=== PATIENT | female | born 1960 | race Caucasian/White ===

== ENCOUNTER 2019-11-02 06:29 | Inpatient (IN) ==
[2019-11-02] MEDS ORDERED: ACETAMINOPHEN 325 MG TABLET PO ONE (06:52)
[2019-11-02] MEDS ORDERED: IBUPROFEN 600 MG TABLET PO ONE (06:52)
[2019-11-02] MEDS ORDERED: 0.9 % SODIUM CHLORIDE 1,000 ML IV ONE ×2 (06:54→07:27)
[2019-11-02] MEDS ORDERED: cefTRIAXone 2 GM in DEXTROSE 5% IN WATER 50 ML IV ONE (07:12)
--- NOTE | 2019-11-02 07:41 | Emergency Department Note ---
Female Urogenital HPI - General Chief complaint: Urogenital-Female Stated complaint: body aches chills Time Seen by Provider: 11/02/19 07:26 Source: patient, family Mode of arrival: ambulatory Limitations: no limitations - History of Present Illness HPI Narrative: This pleasant 59-year-old is accompanied by her Bandar and presents with onset of chills that made her feel cold around 11 PM last night. She gives a background history of being scheduled for low back surgery related to degenerative disc disease and so sometimes it is difficult to tell what is due to her musculoskeletal condition and what could be due to her kidney/urinary tract. She has a previous history of a pyelonephritis and stayed in this hospital several days and it "came out of nowhere" and was not associated with any dysuria. She reports that she was thinking yesterday to have this be checked out today but onset came on strong around 11 PM as above. Again she denies dysuria. She has not checked her temperature with a thermometer but she knows that she was feverish last night. No sweatiness. REVIEW OF SYSTEMS: No sore throat, runny nose, nasal congestion, chest pain, shortness of breath. Has had some nausea and vomiting with 3 episodes yesterday including some dry heaves. No diarrhea or constipation. Has some generalized weakness and lightheadedness. - Related Data Allergies Allergy/AdvReac Type Severity Reaction Status Date / Time hydrocodone AdvReac Intermediate Headache Verified 11/02/19 06:32 Past Medical History - Past Medical History Medical history: Denies: asthma, DVT, pulmonary embolus, seizures Psychiatric history: Denies: anxiety, depression - Social History smoking status: Never smoker Alcohol use: Reports: None Drug use: Reports: none. Denies: marijuana Physical Exam Limitations: no limitations General appearance: alert, in no apparent distress, malaise (Moderate to severe) Head: atraumatic, normocephalic Eye: Present: EOMI ENT: Present: normal oropharynx, mucous membranes moist (But only very slightly.) Neck: Present: trachea midline. Absent: lymphadenopathy, thyromegaly Chest: Present: symmetric chest wall rise Respiratory: Present: normal lung sounds bilaterally. Absent: respiratory distress, wheezes, stridor, accessory muscle use, prolonged expiratory phase Cardiovascular: Present: regular rate, tachycardia. Absent: systolic murmur, diastolic murmur Abdominal: Present: soft. Absent: distention, tenderness, guarding, rebound, rigidity, organomegaly, mass Extremities: Absent: pedal edema, pretibial edema, calf tenderness Back: Present: CVA tenderness (R) (Moderate). Absent: tenderness, CVA tenderness (L), spinous process tenderness Neurological: Present: alert, oriented X3 Psychiatric: Present: normal affect, normal mood Skin: Present: warm, dry Course Vital Signs Temperature 100.4 F H 11/02/19 06:29 Pulse Rate 111 H 11/02/19 06:29 Respiratory Rate 30 H 11/02/19 06:29 Blood Pressure 161/88 11/02/19 06:29 Pulse Oximetry (%) 95 11/02/19 06:29 Temperature 99.2 F H 11/02/19 09:44 Pulse Rate 97 H 11/02/19 09:47 Respiratory Rate 23 H 11/02/19 09:47 Blood Pressure 99/59 11/02/19 09:47 Pulse Oximetry (%) 93 11/02/19 09:47 Urogenital-Female - MDM Narrative Medical decision making narrative: 7:19 AM -with possible urinary symptoms or history of Pyelonephritis that was occult until it was severe. Will do sepsis work-up with labs, cultures, antibiotics. She is tachycardic with fever. - Lab Data Result diagrams: 11/02/19 06:51 11/02/19 06:51 Lab Results 11/02/19 11/02/19 11/02/19 Range/Units 06:50 06:51 06:51 WBC 12.1 H (4.50-11.00) K/mcL RBC 4.06 (3.59-5.38) M/mcL Hgb 13.3 (11.2-15.7) g/dL Hct 39.1 (34.1-44.9) % MCV 96.3 (80.0-100.0) fL MCH 32.8 (26.0-34.0) pg MCHC 34.0 (31.0-36.0) g/dL RDW 12.0 (11.5-14.5) % Plt Count 251 (140-440) K/mcL MPV 9.8 (7.4-10.4) fL Total Counted 100 Seg Neutrophils % 79 H (38-78) % Band Neutrophils % 10 (0-10) % Lymphocytes % 9 L (15-49) % Monocytes % (Manual) 2 (1-12) % Platelet Estimate Normal (NORMAL) RBC Morphology Normal (NORMAL) VBG Lactic Acid (0.5-2.0) mmol/L Sodium 143 (133-145) mmol/L Potassium 3.5 (3.3-5.1) mmol/L Chloride 105 (96-108) mmol/L Carbon Dioxide 22 (22-30) mmol/L Anion Gap 16.0 (8-16) BUN 15 (6-20) mg/dl Creatinine 0.8 (0.6-1.1) mg/dl GFR Calculation 82 Glucose 102 (70-105) mg/dL Calcium 9.4 (8.6-10.4) mg/dl Total Bilirubin 0.4 (0.0-1.0) mg/dL AST 19 (0-37) U/l ALT 14 (0-40) U/l Alkaline Phosphatase 90 (39-117) U/L Total Protein 7.2 (5.9-8.4) gm/dL Albumin 4.2 (3.2-5.2) gm/dL Globulin 3.0 (2.2-3.7) gm/dL Albumin/Globulin Ratio 1.4 (1.0-2.3) Urine Color Straw Urine Appearance Clear Urine pH 5.0 (5.0-9.0) Ur Specific [place] 1.011 (1.000-1.035) Urine Protein Neg (NEG) mg/dL Urine Glucose (UA) Negative (NEG) mg/dL Urine Ketones Neg (NEG) mg/dL Urine Occult Blood 0.03 A (<0.03) mg/dL Urine Nitrate Neg (NEG) Urine Bilirubin Neg (NEG) mg/dL Urine Urobilinogen Neg (NEG) mg/dL Ur Leukocyte Esterase 250 A (NEG) /uL Urine RBC 9 H (0-1) /hpf Urine WBC 56 H (0-4) /hpf Ur Squamous Epith Cells 1 (0-4) /hpf Ur Transition Epith Cell < 1 (0-2) /hpf Urine Bacteria Mod A (0) /hpf Urine Mucus Few (0) /hpf 11/02/ Range/Units 06:51 WBC (4.50-11.00) K/mcL RBC (3.59-5.38) M/mcL Hgb (11.2-15.7) g/dL Hct (34.1-44.9) % MCV (80.0-100.0) fL MCH (26.0-34.0) pg MCHC (31.0-36.0) g/dL RDW (11.5-14.5) % Plt Count (140-440) K/mcL MPV (7.4-10.4) fL Total Counted Seg Neutrophils % (38-78) % Band Neutrophils % (0-10) % Lymphocytes % (15-49) % Monocytes % (Manual) (1-12) % Platelet Estimate (NORMAL) RBC Morphology (NORMAL) VBG Lactic Acid 2.3 H (0.5-2.0) mmol/L Sodium (133-145) mmol/L Potassium (3.3-5.1) mmol/L Chloride (96-108) mmol/L Carbon Dioxide (22-30) mmol/L Anion Gap (8-16) BUN (6-20) mg/dl Creatinine (0.6-1.1) mg/dl GFR Calculation Glucose (70-105) mg/dL Calcium (8.6-10.4) mg/dl Total Bilirubin (0.0-1.0) mg/dL AST (0-37) U/l ALT (0-40) U/l Alkaline Phosphatase (39-117) U/L Total Protein (5.9-8.4) gm/dL Albumin (3.2-5.2) gm/dL Globulin (2.2-3.7) gm/dL Albumin/Globulin Ratio (1.0-2.3) Urine Color Urine Appearance Urine pH (5.0-9.0) Ur Specific [place] (1.000-1.035) Urine Protein (NEG) mg/dL Urine Glucose (UA) (NEG) mg/dL Urine Ketones (NEG) mg/dL Urine Occult Blood (<0.03) mg/dL Urine Nitrate (NEG) Urine Bilirubin (NEG) mg/dL Urine Urobilinogen (NEG) mg/dL Ur Leukocyte Esterase (NEG) /uL Urine RBC (0-1) /hpf Urine WBC (0-4) /hpf Ur Squamous Epith Cells (0-4) /hpf Ur Transition Epith Cell (0-2) /hpf Urine Bacteria (0) /hpf Urine Mucus (0) /hpf Disposition Pt seen by PEDIATRIC NURSE/PA only: No Summary: 9:05 AM - care transferred to Dr. Gaona because of change in shift. Disposition: Still a Patient Condition: Undetermined Referrals: Daniela Mcbride MD [Primary Care Provider] -
[2019-11-02 08:05] LABS: Hematocrit 39.1 % (34.1-44.9); Hemoglobin 13.3 g/dL (11.2-15.7); Mean Cell Volume 96.3 fL (80.0-100.0); Mean Platelet Volume 9.8 fL (7.4-10.4); Platelet Count 251 K/mcL (140-440); RBC 4.06 M/mcL (3.59-5.38); WBC 12.1 K/mcL (4.50-11.00)
[2019-11-02 08:18] LABS: Appearance,Urine CLEAR; Bacteria,Urine MOD /hpf (0); Bilirubin,Urine NEG (NEG); Color,Urine STRAW; Glucose,Urine (UA) NEGATIVE (NEG); Ketones,Urine NEG (NEG); Leukocyte Esterase,Urine 250 /uL (NEG); Mucus,Urine FEW /hpf (0); Nitrate,Urine NEG (NEG); Protein,Urine NEG (NEG); Specific Gravity,Urine 1.011 (1.000-1.035); Urine Blood 0.03 mg/dL (<0.03); Urine RBC 9 /hpf (0-1); Urine Squamous Epithelial Cell 1 /hpf (0-4); Urine Transitional Epi Cells < 1 /hpf (0-2); Urine WBC 56 /hpf (0-4); Urobilinogen,Urine NEG (NEG)
[2019-11-02 08:28] LABS: Band Neutrophils % 10 % (0-10); Lymphocytes % 9 % (15-49); Monocytes % (Manual) 2 % (1-12); Platelet Estimate NORMAL (NORMAL); RBC Morphology NORMAL (NORMAL); Segmented Neutrophils % 79 % (38-78)
[2019-11-02 08:37] LABS: ALT/SGPT 14 U/l (0-40); AST/SGOT 19 U/l (0-37); Albumin 4.2 gm/dL (3.2-5.2); Albumin/Globulin Ratio 1.4 (1.0-2.3); Alkaline Phosphatase 90 U/L (39-117); Bilirubin,Total 0.4 mg/dL (0.0-1.0); Blood Urea Nitrogen 15 mg/dl (6-20); Calcium 9.4 mg/dl (8.6-10.4); Carbon Dioxide 22 mmol/L (22-30); Chloride 105 mmol/L (96-108); Glomerular Filtration Rate 82; Glucose 102 mg/dL (70-105)
--- NOTE | 2019-11-02 11:41 | Emergency Department Note ---
Female Urogenital HPI - General Chief complaint: Urogenital-Female Stated complaint: body aches chills Time Seen by Provider: 11/02/19 07:26 Source: patient, family Mode of arrival: ambulatory Limitations: no limitations - History of Present Illness HPI Narrative: I took over care of this patient at 9 AM - Related Data Allergies Allergy/AdvReac Type Severity Reaction Status Date / Time hydrocodone AdvReac Intermediate Headache Verified 11/02/19 06:32 Past Medical History - Past Medical History Medical history: Denies: asthma, DVT, pulmonary embolus, seizures Psychiatric history: Denies: anxiety, depression - Social History smoking status: Never smoker Alcohol use: Reports: None Drug use: Reports: none. Denies: marijuana Physical Exam Limitations: no limitations General appearance: alert, in no apparent distress, malaise (Moderate to severe) Course Vital Signs Temperature 100.4 F H 11/02/19 06:29 Pulse Rate 111 H 11/02/19 06:29 Respiratory Rate 30 H 11/02/19 06:29 Blood Pressure 161/88 11/02/19 06:29 Pulse Oximetry (%) 95 11/02/19 06:29 Temperature 99.2 F H 11/02/19 09:44 Pulse Rate 94 H 11/02/19 11:11 Respiratory Rate 23 H 11/02/19 09:47 Blood Pressure 99/57 11/02/19 11:02 Pulse Oximetry (%) 91 11/02/19 11:11 Urogenital-Female - MDM Narrative Medical decision making narrative: There is concern for urosepsis with lactic acid this elevated elevated white blood count and slightly low blood pressure. Patient in general also feels quite poorly. She will be admitted to the hospital by Dr. Antonio. - Lab Data Lab results reviewed: Yes I reviewed the patient's lab results. Result diagrams: 11/02/19 06:51 11/02/19 06:51 Lab Results 11/02/19 11/02/19 11/02/19 Range/Units 06:50 06:51 06:51 WBC 12.1 H (4.50-11.00) K/mcL RBC 4.06 (3.59-5.38) M/mcL Hgb 13.3 (11.2-15.7) g/dL Hct 39.1 (34.1-44.9) % MCV 96.3 (80.0-100.0) fL MCH 32.8 (26.0-34.0) pg MCHC 34.0 (31.0-36.0) g/dL RDW 12.0 (11.5-14.5) % Plt Count 251 (140-440) K/mcL MPV 9.8 (7.4-10.4) fL Total Counted 100 Seg Neutrophils % 79 H (38-78) % Band Neutrophils % 10 (0-10) % Lymphocytes % 9 L (15-49) % Monocytes % (Manual) 2 (1-12) % Platelet Estimate Normal (NORMAL) RBC Morphology Normal (NORMAL) VBG Lactic Acid (0.5-2.0) mmol/L Sodium 143 (133-145) mmol/L Potassium 3.5 (3.3-5.1) mmol/L Chloride 105 (96-108) mmol/L Carbon Dioxide 22 (22-30) mmol/L Anion Gap 16.0 (8-16) BUN 15 (6-20) mg/dl Creatinine 0.8 (0.6-1.1) mg/dl GFR Calculation 82 Glucose 102 (70-105) mg/dL Calcium 9.4 (8.6-10.4) mg/dl Total Bilirubin 0.4 (0.0-1.0) mg/dL AST 19 (0-37) U/l ALT 14 (0-40) U/l Alkaline Phosphatase 90 (39-117) U/L Total Protein 7.2 (5.9-8.4) gm/dL Albumin 4.2 (3.2-5.2) gm/dL Globulin 3.0 (2.2-3.7) gm/dL Albumin/Globulin Ratio 1.4 (1.0-2.3) Urine Color Straw Urine Appearance Clear Urine pH 5.0 (5.0-9.0) Ur Specific [place] 1.011 (1.000-1.035) Urine Protein Neg (NEG) mg/dL Urine Glucose (UA) Negative (NEG) mg/dL Urine Ketones Neg (NEG) mg/dL Urine Occult Blood 0.03 A (<0.03) mg/dL Urine Nitrate Neg (NEG) Urine Bilirubin Neg (NEG) mg/dL Urine Urobilinogen Neg (NEG) mg/dL Ur Leukocyte Esterase 250 A (NEG) /uL Urine RBC 9 H (0-1) /hpf Urine WBC 56 H (0-4) /hpf Ur Squamous Epith Cells 1 (0-4) /hpf Ur Transition Epith Cell < 1 (0-2) /hpf Urine Bacteria Mod A (0) /hpf Urine Mucus Few (0) /hpf 11/02/19 Range/Units 06:51 WBC (4.50-11.00) K/mcL RBC (3.59-5.38) M/mcL Hgb (11.2-15.7) g/dL Hct (34.1-44.9) % MCV (80.0-100.0) fL MCH (26.0-34.0) pg MCHC (31.0-36.0) g/dL RDW (11.5-14.5) % Plt Count (140-440) K/mcL MPV (7.4-10.4) fL Total Counted Seg Neutrophils % (38-78) % Band Neutrophils % (0-10) % Lymphocytes % (15-49) % Monocytes % (Manual) (1-12) % Platelet Estimate (NORMAL) RBC Morphology (NORMAL) VBG Lactic Acid 2.3 H (0.5-2.0) mmol/L Sodium (133-145) mmol/L Potassium (3.3-5.1) mmol/L Chloride (96-108) mmol/L Carbon Dioxide (22-30) mmol/L Anion Gap (8-16) BUN (6-20) mg/dl Creatinine (0.6-1.1) mg/dl GFR Calculation Glucose (70-105) mg/dL Calcium (8.6-10.4) mg/dl Total Bilirubin (0.0-1.0) mg/dL AST (0-37) U/l ALT (0-40) U/l Alkaline Phosphatase (39-117) U/L Total Protein (5.9-8.4) gm/dL Albumin (3.2-5.2) gm/dL Globulin (2.2-3.7) gm/dL Albumin/Globulin Ratio (1.0-2.3) Urine Color Urine Appearance Urine pH (5.0-9.0) Ur Specific [place] (1.000-1.035) Urine Protein (NEG) mg/dL Urine Glucose (UA) (NEG) mg/dL Urine Ketones (NEG) mg/dL Urine Occult Blood (<0.03) mg/dL Urine Nitrate (NEG) Urine Bilirubin (NEG) mg/dL Urine Urobilinogen (NEG) mg/dL Ur Leukocyte Esterase (NEG) /uL Urine RBC (0-1) /hpf Urine WBC (0-4) /hpf Ur Squamous Epith Cells (0-4) /hpf Ur Transition Epith Cell (0-2) /hpf Urine Bacteria (0) /hpf Urine Mucus (0) /hpf Disposition Pt seen by CHECK TOTALER/PA only: No Clinical Impression: Urinary tract infection Disposition: Xfer As Inpt ([facility]) Condition: Fair Referrals: Daniela Mcbride MD [Primary Care Provider] - Time of Disposition: 11:41
--- NOTE | 2019-11-02 11:48 | Internal Med History&Physical ---
Medical - H&P: HPI Patient information: Note initiated : 11/02/19 at 11:46 am Service Date, if different from initiated Date: [] Patient: Theresa Zimmerman a 59 y/o F admitted on for Body Aches Chills. Chief Complaint: [] Chief complaint: Flank pain, fever chills History of present illness: Ms. 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 Symptoms intensified by 11 and started experiencing shaking chills fever myalgia. She has had a similar episode 11 years ago when she was diagnosed with pyelonephritis. With increasing concerns she presents to the ER for initial work-up was consistent with pyuria/elevated white count and lactic acid consistent with sepsis. Patient underwent urine blood culture and subsequently antibiotics were administered. Hospitalist service was consulted in light of above symptoms At time evaluation patient is accompanied with her Bandar. She is able to answer most the question provide history as above. She denies diarrhea, dysuria, bloody urine. She endorses to headache myalgia and malaise. She has chronic back pain and is scheduled for back surgery. She has received epidural pain shots in the past. She is unclear if the current symptoms were secondary to worsening back pain or arising out of kidney infection. Along that she denies weight loss, photophobia, neck stiffness. Review of systems A 10 point review system was performed and is negative except for ones discussed above Medical - H&P: PMH Medical history: History of migraine Degenerative joint disease with chronic back pain Family history: reviewed and not pertinent Pertinent family history: Diabetes grandmother Social history: middle school math teacher No smoking alcohol or drug history Medical - H&P: Meds Allergies Allergy/AdvReac Type Severity Reaction Status Date / Time hydrocodone AdvReac Mild Headache Verified 11/02/19 13:12 Medical - H&P: Exam - Constitutional Vitals: Temp Pulse Resp BP Pulse Ox 99.2 F H 96 H 23 H 90/74 93 11/02/19 09:44 11/02/19 11:32 11/02/19 09:47 11/02/19 11:32 11/02/19 11:32 General appearance: moderate distress (Right flank pain) Exam: Alert oriented Head normocephalic Oral cavity dry No ear nose discharge Neck no JVD Eye movement symmetrical S1-S2 tachycardia Diminished breath sounds bases Abdomen soft , tender Right costovertebral angle Lower extremity no sinus clubbing no joint swelling skin no suspicious lesion Psych alert cooperative Neuro nonfocal Medical - H&P: Reslt - Labs CBC & Chem 7: 11/02/19 06:51 11/02/19 06:51 Labs: Short CBC 11/02/19 Range/Units 06:51 WBC 12.1 H (4.50-11.00) K/mcL Hgb 13.3 (11.2-15.7) g/dL Hct 39.1 (34.1-44.9) % Plt Count 251 (140-440) K/mcL BMP 11/02/19 06:51 Sodium 143 Potassium 3.5 Chloride 105 Carbon Dioxide 22 BUN 15 Creatinine 0.8 Glucose 102 Calcium 9.4 Liver Function 11/02/19 Range/Units 06:51 Total Bilirubin 0.4 (0.0-1.0) mg/dL AST 19 (0-37) U/l ALT 14 (0-40) U/l Alkaline Phosphatase 90 (39-117) U/L Albumin 4.2 (3.2-5.2) gm/dL Urine 11/02/19 Range/Units 06:50 Urine Color Straw Urine Appearance Clear Urine pH 5.0 (5.0-9.0) Ur Specific [place] 1.011 (1.000-1.035) Urine Protein Neg (NEG) mg/dL Urine Glucose (UA) Negative (NEG) mg/dL Medical - H&P: A/P (1) Complicated UTI (urinary tract infection) Current visit: Yes Status: Acute * Acute pyonephritis-severe right flank pain. Renal ultrasound rule out obstructive uropathy. Broad antibiotic coverage * Sepsis with endorgan dysfunction. Continue management guidelines. Venous lactic trending/crystalloids/vasopressor support if indicated * History of migraine-currently stable * History of chronic back pain-as needed pain medications * Prophylaxis heparin * Full code Plan * Inpatient admission * Renal ultrasound * Sepsis management guidelines * Antibiotic coverage to be de-escalate based on sensitivities
[2019-11-02] MEDS ORDERED: MAGNESIUM SULFATE 2 GM/50 ML BAG IV PRN (12:50)
[2019-11-02] MEDS ORDERED: cefTRIAXone 2 GM in DEXTROSE 5% IN WATER 50 ML IV SCH (12:50)
[2019-11-02] MEDS ORDERED: NOREPINEPHRINE BITARTRATE 16 MG in 0.9 % SODIUM CHLORIDE 234 ML IV PRN (12:50)
[2019-11-02] MEDS ORDERED: POTASSIUM CHLORIDE 20 MEQ PACKET PO PRN (12:50)
[2019-11-02] MEDS ORDERED: ONDANSETRON 4 MG ODT TABLET SL PRN (12:50)
[2019-11-02] MEDS ORDERED: ONDANSETRON 4 MG/2 ML VIAL IV PRN (12:50)
[2019-11-02] MEDS ORDERED: BISACODYL 10 MG SUPP.RECT PR PRN (12:50)
[2019-11-02] MEDS ORDERED: POLYETHYLENE GLYCOL 3350 17 GM PACKET PO PRN (12:50)
[2019-11-02] MEDS: ACETAMINOPHEN 650 MG/65 ML BOTTLE IV PRN (14:03)
[2019-11-02] MEDS: 0.9 % SODIUM CHLORIDE 10 ML SYRINGE IV SCH ×2 (14:34→20:24)
[2019-11-02] MEDS: IBUPROFEN 200 MG TABLET PO PRN ×2 (14:48→20:22)
--- NOTE | 2019-11-02 16:03 | Ultrasound Report ---
CLINICAL INFORMATION: Right flank pain. Possible obstructive uropathy TECHNIQUE: Grayscale and color flow Doppler spectral imaging COMPARISON: Previous CT scan dated 01/07/2009 FINDINGS: Right kidney measures 11.8 x 7.8 x 6.7 cm. There is a single 9 mm lower pole cyst. No solid mass. Right renal collecting system is slightly prominent. No significant hydronephrosis identified. Left kidney measures 11.5 x 4.7 x 5.2 cm. No solid or cystic mass. No hydronephrosis. No detectable calculi. Bilateral ureteral jets are identified. Prevoid bladder volume measures 270 mL. Postvoid bladder volume measures 9 mL. No ureteral calculus or detectable mass. IMPRESSION: No significant hydronephrosis. No acute abnormality Interpreted and Authenticated by: Garry Sanches 11/02/19
[2019-11-02] MEDS: ACETAMINOPHEN 325 MG TABLET PO PRN (20:22)
[2019-11-02] MEDS: MELATONIN 3 MG TABLET PO PRN (20:22)
[2019-11-02] MEDS: SENNOSIDES/DOCUSATE SODIUM 1 TAB TABLET PO SCH (20:23)
[2019-11-02] MEDS: HEPARIN 5,000 UNIT/ML VIAL SQ SCH (20:23)
[2019-11-02] MEDS: DOCUSATE SODIUM 100 MG CAPSULE PO SCH (20:23)
[2019-11-03] MEDS: ACETAMINOPHEN 325 MG TABLET PO PRN (04:02)
[2019-11-03] MEDS: 0.9 % SODIUM CHLORIDE 10 ML SYRINGE IV SCH ×3 (04:03→20:12)
[2019-11-03 07:16] LABS: Hematocrit 35.2 % (34.1-44.9); Hemoglobin 11.7 g/dL (11.2-15.7); Mean Cell Volume 97.8 fL (80.0-100.0); Mean Corpuscular HGB Conc 33.2 g/dL (31.0-36.0); Mean Platelet Volume 10.2 fL (7.4-10.4); Platelet Count 249 K/mcL (140-440); Red Cell Distribution Width 12.2 % (11.5-14.5)
[2019-11-03 07:32] LABS: ALT/SGPT 10 U/l (0-40); AST/SGOT 13 U/l (0-37); Albumin 3.8 gm/dL (3.2-5.2); Albumin/Globulin Ratio 1.5 (1.0-2.3); Alkaline Phosphatase 79 U/L (39-117); Bilirubin,Direct < 0.2 mg/dL (0.0-0.3); Bilirubin,Total 0.3 mg/dL (0.0-1.0); Blood Urea Nitrogen 8 mg/dl (6-20); Calcium 9.3 mg/dl (8.6-10.4); Carbon Dioxide 22 mmol/L (22-30); Chloride 106 mmol/L (96-108); Globulin 2.5 gm/dL (2.2-3.7); Glomerular Filtration Rate 96; Glucose 99 mg/dL (70-105); Lactate Dehydrogenase 183 U/L (94-250); Phosphorous 3.3 mg/dL (2.7-4.5); Triglycerides 92 mg/dl (<150); Uric Acid 5.1 mg/dL (2.5-8.0)
[2019-11-03] MEDS: cefTRIAXone 2 GM in DEXTROSE 5% IN WATER 50 ML IV SCH (08:30)
[2019-11-03 08:35] LABS: Eosinophils % (Manual) 2 % (0-7); Lymphocytes % 22 % (15-49); Monocytes % (Manual) 6 % (1-12); Platelet Estimate NORMAL (NORMAL); RBC Morphology NORMAL (NORMAL); Segmented Neutrophils % 70 % (38-78)
[2019-11-03] MEDS: HEPARIN 5,000 UNIT/ML VIAL SQ SCH ×2 (08:43→20:13)
[2019-11-03] MEDS: DOCUSATE SODIUM 100 MG CAPSULE PO SCH ×2 (08:44→20:07)
[2019-11-03] MEDS: MULTIVIT,THER IRON,CA,FA & MIN 1 TABLET PO SCH (08:44)
[2019-11-03] MEDS: IBUPROFEN 200 MG TABLET PO PRN ×2 (08:44→18:43)
[2019-11-03] MEDS: LEVOFLOXACIN 750 MG/150 ML BAG IV SCH (08:45)
--- NOTE | 2019-11-03 10:36 | Internal Med Progress Note ---
Medical - PN: Subj Patient information: Note initiated : 11/03/19 at 10:33 am Service Date, if different from initiated Date: [] Patient: Theresa Zimmerman a 59 y/o F admitted on 11/02/19 for Body Aches Chills. Chief Complaint: [] Interval history: Ms. 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 Symptoms intensified by 11 and started experiencing shaking chills fever myalgia. She has had a similar episode 11 years ago when she was diagnosed with pyelonephritis. With increasing concerns she presents to the ER for initial work-up was consistent with pyuria/elevated white count and lactic acid consistent with sepsis. Patient underwent urine blood culture and subsequently antibiotics were administered. Hospitalist service was consulted in light of above symptoms At time evaluation patient is accompanied with her Bandar. She is able to answer most the question provide history as above. She denies diarrhea, dysuria, bloody urine. She endorses to headache myalgia and malaise. She has chronic back pain and is scheduled for back surgery. She has received epidural pain shots in the past. She is unclear if the current symptoms were secondary to worsening back pain or arising out of kidney infection. Along that she denies weight loss, photophobia, neck stiffness. 11/03-patient has been continued on antibiotics including Rocephin and ad ditionally now on Levaquin in light of bacteremia. Abdominal ultrasound unremarkable for obstructive uropathy. Patient clinically improved with stable hemodynamics. White count downtrending. Lactate normalized. Potassium 3.2 on replacement. Will likely discharge in 24 to 48 hours pending clinical improvement and additional 8 days antibiotic based on culture sensitivities. - Constitutional Vitals: Vital Signs Temp Pulse Resp BP Pulse Ox 98.3 F 87 16 137/80 95 11/03/19 08:07 11/02/19 12:50 11/03/19 08:07 11/03/19 08:07 11/03/19 08:07 Period Temp Pulse Resp BP Sys/Kumar Pulse Ox Last 24 Hr 98.1 F-100 F 87-96 14- 90-140/52-83 90-100 Intake and Output 11/02/19 11/03/19 11/03/19 21:59 05:59 13:59 Intake Total 1025 800 Output Total 1000 1300 Balance 25 -500 Weight 205 lb 6.4 oz Intake & Output: Intake & Output 11/02/19 11/03/19 11/03/19 21:59 05:59 13:59 Intake Total 1025 800 Output Total 1000 1300 Balance 25 -500 Weight 205 lb 6.4 oz Intake: IV 65 Oral 960 800 Output: Void Amount 1000 1300 Other: Meal Dinner Percent of Meal Consumed 75% Feeding Ability Independent Urine Appearance Clear Urine Color Bright Yellow # Voids 1 General appearance: no acute distress Exam: Alert oriented nonlabored breathing No anxiety Medical - PN: Obj Da - Labs CBC & Chem 7: 11/03/19 04:01 11/03/19 04:01 Labs: Abnormal Lab Results 11/03/19 11/02/19 11/02/19 04:01 06:51 06:51 WBC 12.1 H Seg Neutrophils % 79 H Lymphocytes % 9 L VBG Lactic Acid 2.3 H Potassium 3.2 L Urine Occult Blood Ur Leukocyte Esterase Urine RBC Urine WBC Urine Bacteria 11/02/19 06:50 WBC Seg Neutrophils % Lymphocytes % VBG Lactic Acid Potassium Urine Occult Blood 0.03 A Ur Leukocyte Esterase 250 A Urine RBC 9 H Urine WBC 56 H Urine Bacteria Mod A Meds: Medications Acetaminophen (Tylenol) 650 mg PO Q4-6HP PRN; Protocol PRN Reason: Per Pain Protocol/Fever > 101 Last Admin: 11/03/19 04:02 Dose: 650 mg Documented by: Bisacodyl (Dulcolax) 10 mg MO Q2-3DAYS PRN PRN Reason: Constipation Docusate Sodium (Colace) 100 mg PO BID [facility] Last Admin: 11/03/19 08:44 Dose: 100 mg Documented by: Heparin Sodium (Porcine) (Heparin) 5,000 unit SQ Q12 [facility] Last Admin: 11/03/19 08:43 Dose: 5,000 unit Documented by: Acetaminophen (Ofirmev) 650 mg in 65 mls @ 130 mls/hr IV Q6HP PRN; Protocol PRN Reason: Per Pain Protocol/Fever > 101 Last Infusion: 11/02/19 14:33 Dose: Infused Documented by: Magnesium Sulfate (Magnesium Sulfate) 2 gm in 50 mls @ 50 mls/hr IV UD PRN PRN Reason: MG = or < 1.7 Norepinephrine Bitartrate 16 (mg/ Sodium Chloride) 250 mls @ 9.375 mls/hr IV Q24HP PRN; Protocol PRN Reason: TITRATE TO KEEP MAP > 65 Ceftriaxone Sodium 2 gm/ (Dextrose) 50 mls @ 100 mls/hr IV DAILY [facility]; Protocol Last Admin: 11/03/19 08:30 Dose: 100 mls/hr Documented by: Levofloxacin (Levaquin) 750 mg in 150 mls @ 100 mls/hr IV Q24H [facility] Last Admin: 11/03/19 08:45 Dose: 100 mls/hr Documented by: Ibuprofen (Motrin) 200 mg PO TIDP PRN; Protocol PRN Reason: Per Pain Protocol Last Admin: 11/03/19 08:44 Dose: 200 mg Documented by: Iron Carb/Multivit/Clinical Engineer/Folic Acid (Multivitamin W/Minerals) 1 tab PO DAILY [facility] Last Admin: 11/03/19 08:44 Dose: 1 tab Documented by: Melatonin (Melatonin 3mg Tablet) 3 mg PO HSP PRN PRN Reason: Insomnia Last Admin: 11/02/19 20:22 Dose: 3 mg Documented by: Ondansetron HCl (Zofran Odt) 4 mg SL Q4-6HP PRN; Protocol PRN Reason: Nausea And Vomiting Ondansetron HCl (Zofran) 4 mg IV Q4-6HP PRN; Protocol PRN Reason: Nausea And Vomiting Polyethylene Glycol (Miralax) 17 gm PO DAILYP PRN PRN Reason: Constipation Potassium Chloride (Klor-Con) 40 meq PO DAILYP PRN PRN Reason: K+ < 3.5 Senna/Docusate Sodium (Senna Plus Tablet) 1 tab PO HS [facility] Last Admin: 11/02/19 20:23 Dose: Not Given Documented by: Sodium Chloride (Saline Flush) 10 ml IV Q8 [facility] Last Admin: 11/03/19 04:03 Dose: 10 ml Documented by: Sumatriptan Succinate (Imitrex) 25 mg PO Q2HP PRN PRN Reason: Headache Triamterene/HCTZ (Maxzide 25) 1 cap PO DAILY [facility] Medical - PN: A/P - Time Spent With Patient Total time spent is greater than 50% in coordination of care (as documented) at patient's floor/unit and/or counseling patient: 25 - 35 minutes (1) Complicated UTI (urinary tract infection) Status: Acute Assessment and plan: * Gram-negative bacteremia-continue broad antibiotic coverage. Await sensitivities for antibiotic de-escalation * Acute pyonephritis-severe right flank pain clinically improved. Renal ultrasound negative for obstructive uropathy. Continue antibiotic coverage for total of 10 days. * Severe sepsis with endorgan dysfunction. Clinical improvement noted. Lactate normalized. Stable hemodynamics. * History of migraine-restart home dose Imitrex * History of chronic back pain-continue as needed pain medications * Prophylaxis heparin * Full code Plan * Escalate antibiotics to include Levaquin. Await sensitivities * Antimigraine treatment * PT OT/nutrition support Current Visit: Yes Medical - PN: Qual - VTE Deep Vein Thrombosis/Pulmonary Embolism Present on Admission: No
[2019-11-03] MEDS ORDERED: SUMAtriptan SUCCINATE 25 MG TABLET PO PRN (10:43)
[2019-11-03] MEDS: SUMAtriptan SUCCINATE 50 MG TABLET PO PRN ×2 (11:38→16:06)
[2019-11-03] MEDS: TRIAMTERENE/HYDROCHLOROTHIAZID 1 CAP CAPSULE PO SCH (11:38)
[2019-11-03] MEDS: ACETAMINOPHEN 650 MG/65 ML BOTTLE IV PRN (18:43)
[2019-11-03] MEDS: SENNOSIDES/DOCUSATE SODIUM 1 TAB TABLET PO SCH (20:07)
[2019-11-03] MEDS: MELATONIN 3 MG TABLET PO PRN (20:13)
[2019-11-04] MEDS: 0.9 % SODIUM CHLORIDE 10 ML SYRINGE IV SCH (05:06)
[2019-11-04 08:25] LABS: Hematocrit 39.7 % (34.1-44.9); Hemoglobin 13.3 g/dL (11.2-15.7); Mean Cell Volume 96.8 fL (80.0-100.0); Mean Corpuscular HGB Conc 33.5 g/dL (31.0-36.0); Mean Platelet Volume 9.9 fL (7.4-10.4); Platelet Count 291 K/mcL (140-440); Red Cell Distribution Width 11.9 % (11.5-14.5); WBC 8.6 K/mcL (4.50-11.00)
[2019-11-04] MEDS: cefTRIAXone 2 GM in DEXTROSE 5% IN WATER 50 ML IV SCH (08:27)
[2019-11-04] MEDS: DOCUSATE SODIUM 100 MG CAPSULE PO SCH (08:27)
[2019-11-04] MEDS: TRIAMTERENE/HYDROCHLOROTHIAZID 1 CAP CAPSULE PO SCH (08:27)
[2019-11-04] MEDS: HEPARIN 5,000 UNIT/ML VIAL SQ SCH (08:27)
[2019-11-04] MEDS: LEVOFLOXACIN 750 MG/150 ML BAG IV SCH (08:28)
[2019-11-04] MEDS: MULTIVIT,THER IRON,CA,FA & MIN 1 TABLET PO SCH (08:28)
[2019-11-04 08:37] LABS: ALT/SGPT 11 U/l (0-40); AST/SGOT 12 U/l (0-37); Albumin 4.1 gm/dL (3.2-5.2); Albumin/Globulin Ratio 1.3 (1.0-2.3); Alkaline Phosphatase 93 U/L (39-117); Bilirubin,Direct < 0.2 mg/dL (0.0-0.3); Bilirubin,Total 0.3 mg/dL (0.0-1.0); Blood Urea Nitrogen 6 mg/dl (6-20); Calcium 9.9 mg/dl (8.6-10.4); Carbon Dioxide 25 mmol/L (22-30); Chloride 99 mmol/L (96-108); Globulin 3.1 gm/dL (2.2-3.7); Glomerular Filtration Rate 96; Glucose 101 mg/dL (70-105); Lactate Dehydrogenase 188 U/L (94-250); Phosphorous 3.2 mg/dL (2.7-4.5); Triglycerides 144 mg/dl (<150); Uric Acid 4.6 mg/dL (2.5-8.0)
[2019-11-04] MEDS: SUMAtriptan SUCCINATE 50 MG TABLET PO PRN (08:48)
[2019-11-04 10:01] LABS: Eosinophils % (Manual) 1 % (0-7); Lymphocytes % 26 % (15-49); Monocytes % (Manual) 11 % (1-12); Platelet Estimate NORMAL (NORMAL); RBC Morphology NORMAL (NORMAL); Segmented Neutrophils % 62 % (38-78)
--- NOTE | 2019-11-04 18:02 | Discharge Summary ---
Medical - DS: Prov Patient information: Note initiated : 11/04/19 at 5:51 pm Service Date, if different from initiated Date: [] Patient: Theresa Zimmerman 59 y/o F admitted on 11/02/19 for Body Aches Chills. Chief Complaint: [] Date of admission: 11/02/19 12:39 Discharge date: 11/04/19 Primary care physician: Daniela Mcbride Consults: 11/02/19 Consult to Physician [CONS] Stat Comment: Consulting Provider: Milind Monroy Reason For Exam: Physician to Consult Medical - DS: Meds - Discharge Medications Prescriptions: cefTRIAXone NA/DEXTROSE,ISO [Ceftriaxone 2 gm Piggyback] 2 gm IV DAILY 7 Days #7 ml Prescription Printed Active and Home Medications: Home Medications SUMAtriptan SUCCINATE [Imitrex] 100 mg PO PRN PRN 11/02/19 [History Confirmed 11/02/19 Last Taken Unknown] Triamterene-Hctz 37.5-25 mg Tb 1 mg PO QAM 11/02/19 [History Confirmed 11/02/19 Last Taken 11/01/19 06:15] cefTRIAXone NA/DEXTROSE,ISO [Ceftriaxone 2 gm Piggyback] 2 gm IV DAILY 7 Days #7 ml 11/04/19 [Rx Last Taken Unknown] Medical - DS: Hosp Hospital Course: Discharge diagnosis * Gram-negative bacteremia- E. coli on urine culture-continue Rocephin for additional 7 days. Outpatient infusion * Acute pyonephritis-severe right flank pain clinically improved. Renal ultrasound negative for obstructive uropathy. Continue antibiotic for additional 7 days * Severe sepsis with endorgan dysfunction. Clinical resolution noted. * HTN- Restart Home meds. * History of migraine-continue as needed Imitrex/antimigraine * History of chronic back pain-continue as needed pain medications Brief hospital course Ms. 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 Symptoms intensified by 11 and started experiencing shaking chills fever myalgia. She has had a similar episode 11 years ago when she was diagnosed with pyelonephritis. With increasing concerns she presents to the ER for initial work-up was consistent with pyuria/elevated white count and lactic acid consistent with sepsis. Patient underwent urine blood culture and subsequently antibiotics were administered. Hospitalist service was consulted in light of above symptoms At time evaluation patient is accompanied with her [facility]. She is able to answer most the question provide history as above. She denies diarrhea, dysuria, bloody urine. She endorses to headache myalgia and malaise. She has chronic back pain and is scheduled for back surgery. She has received epidural pain shots in the past. She is unclear if the current symptoms were secondary to worsening back pain or arising out of kidney infection. Along that she denies weight loss, photophobia, neck stiffness. 11/03-patient has been continued on antibiotics including Rocephin and additionally now on Levaquin in light of bacteremia. Abdominal ultrasound unremarkable for obstructive uropathy. Patient clinically improved with stable hemodynamics. White count downtrending. Lactate normalized. Potassium 3.2 on replacement. Will likely discharge in 24 to 48 hours pending clinical improvement and additional 8 days antibiotic based on culture sensitivities. 11/04-patient clinically improved. Sepsis resolved. Flank pain resolved. On antibiotic coverage. White count normalized. No further fever chills. Intermittent migraine headaches improved on Imitrex. Discharging advised to continue IV Rocephin for additional 7 days as outpatient infusion. Discharge diagnosis: . - Time Spent with Patient Total time spent providing and/or coordinating discharge services: Greater than 30 minutes Medical - DS: Exam - Constitutional Vitals: Vital Signs Temp Pulse Pulse Resp BP BP Pulse Ox 11/04/19 15:55 98 F 20 150/84 96 11/04/19 12:00 98 F 20 150/84 96 11/04/19 11:47 98 F 16 142/83 96 11/04/19 08:00 96.9 F L 20 136/79 96 11/04/19 07:29 96.9 F L 20 136/79 96 11/04/19 04:00 98.5 F 90 18 147/94 95 11/04/19 02:00 71 18 96 11/03/19 23:49 97.9 F 77 16 116/70 95 11/03/19 19:40 100.6 F H 11/03/19 19:28 100.6 F H 11/03/19 18:43 101.4 F H 11/03/19 18:20 101.5 F H 105 H 168/94 93 Intake and Output 11/04/19 11/04/19 11/04/19 05:59 13:59 21:59 Intake Total 800 1340 240 Output Total 1000 500 150 Balance -200 840 90 Intake: IV 200 Rocephin 2 gm In Dextrose 5% in 50 Water 50 ml @ 100 mls/hr IV DAILY JULIO Rx#:[id number] Oral 800 1140 240 Output: Void Amount 1000 500 150 Other: Meal Lunch Percent of Meal Consumed 100% Urine Appearance Clear Clear Urine Color Bright Yellow Bright Yellow Urine Odor Normal # Voids 1 # Bowel Movements 4 Medical - DS: Data Labs on day of discharge: Labs from last 24 hours 11/04/19 11/04/19 05:05 05:05 WBC 8.6 RBC 4.10 Hgb 13.3 Hct 39.7 MCV 96.8 MCH 32.4 MCHC 33.5 RDW 11.9 Plt Count 291 MPV 9.9 Total Counted 100 Seg Neutrophils % 62 Band Neutrophils % Not Reportable Lymphocytes % 26 Monocytes % (Manual) 11 Eosinophils % (Manual) 1 Platelet Estimate Normal RBC Morphology Normal Sodium 136 Potassium 3.7 Chloride 99 Carbon Dioxide 25 Anion Gap 12.0 BUN 6 Creatinine 0.7 GFR Calculation 96 Glucose 101 Uric Acid 4.6 Calcium 9.9 Phosphorus 3.2 Magnesium 2.3 Total Bilirubin 0.3 Direct Bilirubin < 0.2 GGT 18 AST 12 ALT 11 Alkaline Phosphatase 93 Lactate Dehydrogenase 188 Total Protein 7.2 Albumin 4.1 Globulin 3.1 Albumin/Globulin Ratio 1.3 Triglycerides 144 Preliminary micro results at discharge 11/02/19 06:45 Urine Culture - Preliminary Urine - Clean Void Mid-Stream Escherichia coli Gram negative bacillus 11/02/19 07:06 Blood Culture - Preliminary Blood 11/02/19 07:13 Blood Culture - Preliminary Blood Gram negative bacillus Medical - DS: A/P - Patient/Caregiver Discharge Instructions Activity: increase activity as tolerated Diet: Regular Diet Additional Instructions: Outpatient IV Rocephin infusion daily for 7 days Midline placement in a.m. May resume work starting Friday Return to ER if increasing flank pain, fever chills Prescriptions: cefTRIAXone NA/DEXTROSE,ISO [Ceftriaxone 2 gm Piggyback] 2 gm IV DAILY 7 Days #7 ml Prescription Printed - Problem Maintenance (1) Complicated UTI (urinary tract infection) Status: Acute - Follow up Plan Follow up with: Daniela Mcbride MD [Primary Care Provider] - Disposition: Home, Self-Care Prognosis: Fair Rehab Potential: Fair I certify that the patient requires SNF services: No Overall status at discharge: patient is progressing back to baseline Medical - DS: Qual - VTE Deep Vein Thrombosis/Pulmonary Embolism Present on Admission: No
== END 2019-11-04 19:34 | disposition home or self-care (01) | DRG 872 ==
LOC: ED 06:29 → ICU 12:39
PROVIDERS: ADMIT Internal Medicine; ATTEND Internal Medicine